=== PATIENT | male | born 1980 | race Caucasian/White ===

== ENCOUNTER 2023-04-28 13:23 | Emergency (ER) | payer SELFPAY ==
[2023-04-28 14:08] LABS: #Eosinphils 0.2 thou/uL (0.0-0.7); #Monocytes 0.6 thou/uL (0.11-0.59); #Neutrophils 2.3 thou/uL (1.40-6.50); %Basophils 0.6 % (0.0-1.0); %Eosinophils 3.9 % (0.0-10.0); %Lymphocytes 33.3 % (21.0-51.0); %Monocytes 12.1 % (0.0-10.0); %Neutrophils 49.9 % (42.0-75.0); Hematocrit 27.2 % (42.0-52.0); Hemoglobin 9.5 g/dL (14.0-18.0); Mean Corpuscular HGB CONC 34.9 g/dL (32.0-36.0); Mean Corpuscular Hemoglobin 34.8 pg (27.0-31.0); Mean Corpuscular Volume 99.6 fl (78.0-98.0); Mean Platelet Volume 9.7 fL (7.4-10.4); Platelet Count 83 10x3/uL (130-400); RBC Distribution Width 14.5 % (11.5-14.5); Red Blood Cell (RBC) Count 2.73 mill/uL (4.70-6.10); White Blood Cell (WBC) Count 4.6 10x3/uL (4.8-10.8)
[2023-04-28 14:27] LABS: ALT (SGPT) 38 U/L (8-55); AST (SGOT) 72 U/L (5-34); Acetaminophen Less than 10 mcg/mL (10.0-30.0); Albumin 3.4 g/dL (3.5-5.0); Alkaline Phosphatase 112 U/L (40-110); Anion Gap 13 mmol/L (10-20); BUN (Urea Nitrogen) 7 mg/dL (8.9-20.6); Bilirubin, Total 2.2 mg/dL (0.2-1.2); CK (CPK) 111 U/L (30-200); Calc. Creatinine Clearance 0 mL/min (70-130); Calcium 8.8 mg/dL (7.8-10.44); Carbon Dioxide 25 mmol/L (22-29); Chloride 110 mmol/L (98-107); Estimated GFR 113; Globulin 3.6 g/dL (2.4-3.5); Glucose 110 mg/dL (70-105); Potassium 3.6 mmol/L (3.5-5.1); Salicylate Less than 8.0 mg/dL (15.0-30.0); Sodium 144 mmol/L (136-145)
[2023-04-28] MEDS ORDERED: Ketorolac Tromethamine 30 MG/ML VIAL ONE (15:09)
[2023-04-28] MEDS ORDERED: diphenhydrAMINE 50 MG/ML VIAL ONE (18:34)
[2023-04-28] MEDS ORDERED: Metoclopramide HCl 10 MG/2 ML VIAL ONE (18:34)
[2023-04-28 21:27] LABS: Bacteria/HPF None Seen HPF (None Seen); Bilirubin 1+ (Negative); Blood, Urine Negative (Negative); CAUTI Indications for Culture Alt mental st,lethar; Clarity Clear (Clear); Glucose, Urine (Dipstick) Normal (Negative); Ketone, Urine Negative (Negative); Leukocyte Negative Leu/uL (Negative); Nitrite Negative (Negative); Protein, Urine (Dipstick) 30 mg/dL (Neg-Trace); RBC/HPF 0-3 HPF (0-3); Specific Gravity, Urine 1.032 (1.002-1.036); Squamous Epithelial 0-3 HPF (0-3); WBC/HPF 0-3 HPF (0-3); pH, Urine 6.5 (5.0-9.0)
[2023-04-28 21:32] LABS: Amphetamine Not Detected (NotDetected); Barbiturates Screen Not Detected (NotDetected); Benzodiazepine Screen Detected (NotDetected); Cocaine Metabolite Screen Not Detected (NotDetected); Methadone Not Detected (NotDetected); Methamphetamine Not Detected (NotDetected); Opiate Screen Not Detected (NotDetected); Oxycodone Screen Not Detected (NotDetected); Phencyclidine (PCP) Not Detected (NotDetected); THC/Cannabinoid Screen Detected (NotDetected); Tricyclic Screen Not Detected (NotDetected)
[2023-04-28 21:33] LABS: Urine Culture Reflex No No
== END 2023-04-29 04:28 | disposition home or self-care (01) ==
LOC: ERS 13:23
DX: R41.82 Altered mental status, unspecified (principal); F10.129 Alcohol abuse with intoxication, unspecified; G43.909 Migraine, unspecified, not intractable, without status migrainosus; E11.9 Type 2 diabetes mellitus without complications; Y90.8 Blood alcohol level of 240 mg/100 ml or more; Z87.891 Personal history of nicotine dependence
CPT/HCPCS: 36415; 70450; 80053; 80306; 80307; 81001; 82550; 84484; 85025; 93005; 96361; 96365; 96375; J1200; J1885; J2765

== ENCOUNTER 2023-04-29 12:34 | Emergency (ER) | payer SELFPAY ==
[2023-04-29 13:50] LABS: Bacteria/HPF None Seen HPF (None Seen); Bilirubin Negative (Negative); Blood, Urine Negative (Negative); CAUTI Indications for Culture Dysuria,urgency,freq; Clarity Clear (Clear); Glucose, Urine (Dipstick) Normal (Negative); Ketone, Urine Negative (Negative); Leukocyte Negative Leu/uL (Negative); Nitrite Negative (Negative); Protein, Urine (Dipstick) Negative (Neg-Trace); RBC/HPF 0-3 HPF (0-3); Specific Gravity, Urine 1.004 (1.002-1.036); Squamous Epithelial 0-3 HPF (0-3); Urobilinogen Normal mg/dL (Less than 2); WBC/HPF None Seen HPF (0-3); pH, Urine 6.5 (5.0-9.0)
[2023-04-29 13:51] LABS: #Eosinphils 0.1 thou/uL (0.0-0.7); #Monocytes 0.5 thou/uL (0.11-0.59); #Neutrophils 2.5 thou/uL (1.40-6.50); %Basophils 0.3 % (0.0-1.0); %Eosinophils 1.5 % (0.0-10.0); %Lymphocytes 21.4 % (21.0-51.0); %Monocytes 12.1 % (0.0-10.0); %Neutrophils 64.4 % (42.0-75.0); Hematocrit 28.6 % (42.0-52.0); Hemoglobin 9.9 g/dL (14.0-18.0); Mean Corpuscular HGB CONC 34.6 g/dL (32.0-36.0); Mean Corpuscular Hemoglobin 35.1 pg (27.0-31.0); Mean Corpuscular Volume 101.4 fl (78.0-98.0); Mean Platelet Volume 9.7 fL (7.4-10.4); RBC Distribution Width 14.3 % (11.5-14.5); Red Blood Cell (RBC) Count 2.82 mill/uL (4.70-6.10); White Blood Cell (WBC) Count 3.9 10x3/uL (4.8-10.8)
[2023-04-29 13:52] LABS: Urine Culture Reflex No No
[2023-04-29 13:57] LABS: Platelet Count 63 10x3/uL (130-400)
[2023-04-29 14:15] LABS: ALT (SGPT) 38 U/L (8-55); AST (SGOT) 65 U/L (5-34); Albumin 3.6 g/dL (3.5-5.0); Alkaline Phosphatase 127 U/L (40-110); Anion Gap 13 mmol/L (10-20); BUN (Urea Nitrogen) 8 mg/dL (8.9-20.6); Bilirubin, Total 3.5 mg/dL (0.2-1.2); CK (CPK) 189 U/L (30-200); Calc. Creatinine Clearance 0 mL/min (70-130); Calcium 8.6 mg/dL (7.8-10.44); Carbon Dioxide 20 mmol/L (22-29); Chloride 110 mmol/L (98-107); Estimated GFR 116; Globulin 3.3 g/dL (2.4-3.5); Glucose 104 mg/dL (70-105); Potassium 3.3 mmol/L (3.5-5.1); Protein, Total 6.9 g/dL (6.0-8.3); Sodium 140 mmol/L (136-145)
== END 2023-04-29 14:56 | disposition home or self-care (01) ==
LOC: ERS 12:34
DX: R53.83 Other fatigue (principal); R53.1 Weakness; E11.9 Type 2 diabetes mellitus without complications; Z87.891 Personal history of nicotine dependence
CPT/HCPCS: 36416; 80053; 81001; 82550; 84484; 85025; 93005; 96360

== ENCOUNTER 2023-05-05 21:07 | Inpatient (IN) | payer SELFPAY ==
[~2023-05-05 21:07] MED LIST: Iopamidol-370 76% 500 ML MDV (1 ML CHARGE) ONE
[2023-05-05 22:53] LABS: #Eosinphils 0.2 thou/uL (0.0-0.7); #Monocytes 0.3 thou/uL (0.11-0.59); %Basophils 0.8 % (0.0-1.0); %Lymphocytes 33.3 % (21.0-51.0); %Neutrophils 51.6 % (42.0-75.0); Hematocrit 25.8 % (42.0-52.0); Mean Corpuscular HGB CONC 34.9 g/dL (32.0-36.0); Mean Corpuscular Hemoglobin 35.2 pg (27.0-31.0); Mean Corpuscular Volume 100.8 fl (78.0-98.0); Mean Platelet Volume 8.7 fL (7.4-10.4); RBC Distribution Width 15.5 % (11.5-14.5); Red Blood Cell (RBC) Count 2.56 mill/uL (4.70-6.10); White Blood Cell (WBC) Count 3.8 10x3/uL (4.8-10.8)
[2023-05-05 22:57] LABS: Delete Auto Diff?? NO; Platelet Count 58 10x3/uL (130-400)
[2023-05-05 23:19] LABS: ALT (SGPT) 23 U/L (8-55); AST (SGOT) 50 U/L (5-34); Albumin 3.4 g/dL (3.5-5.0); Alkaline Phosphatase 139 U/L (40-110); Anion Gap 12 mmol/L (10-20); BUN (Urea Nitrogen) 7 mg/dL (8.9-20.6); Bilirubin, Total 2.1 mg/dL (0.2-1.2); CK (CPK) 127 U/L (30-200); Calc. Creatinine Clearance 0 mL/min (70-130); Calcium 8.5 mg/dL (7.8-10.44); Carbon Dioxide 23 mmol/L (22-29); Chloride 114 mmol/L (98-107); Estimated GFR 115; Globulin 3.2 g/dL (2.4-3.5); Glucose 94 mg/dL (70-105); Protein, Total 6.6 g/dL (6.0-8.3); Sodium 146 mmol/L (136-145)
[2023-05-05 23:22] LABS: Troponin I Less than 0.010 ng/mL (< 0.028)
[2023-05-05 23:25] LABS: Acetaminophen Less than 10 mcg/mL (10.0-30.0); Alcohol 381.5 mg/dL (Less than 10); Lipase 130 U/L (8-78); Magnesium 1.6 mg/dL (1.6-2.6); Salicylate Less than 8.0 mg/dL (15.0-30.0)
[2023-05-06] MEDS ORDERED: Potassium Chloride 20 MEQ TAB ONE (00:06)
[2023-05-06] MEDS ORDERED: Electrolyte Replacement Protocol 1 EACH FS PRN (00:30)
[2023-05-06] MEDS ORDERED: Acetaminophen 650 MG Suppository PR PRN (01:27)
[2023-05-06] MEDS ORDERED: Acetaminophen 325 MG TAB PO PRN (01:27)
[2023-05-06] MEDS ORDERED: Ondansetron ODT 4 MG TAB PO PRN ×2 (01:27→01:41)
[2023-05-06] MEDS ORDERED: Dextrose 50% Abboject 50 ML SYRINGE SLOW IVP PRN (01:33)
[2023-05-06] MEDS ORDERED: Dextrose 5% in Water 1,000 ML IV PRN (01:33)
[2023-05-06] MEDS ORDERED: HumaLOG 300 UNITS/3 ML VIAL SC PRN ×2 (01:33)
[2023-05-06] MEDS ORDERED: Glucagon 1 MG/ML KIT IM PRN (01:33)
[2023-05-06] MEDS ORDERED: Lorazepam 1 MG TAB PO PRN (01:41)
[2023-05-06] MEDS ORDERED: Lorazepam 2 MG/ML VIAL IM PRN (01:41)
[2023-05-06] MEDS ORDERED: Magnesium 2 GM/50 ML(in water) 2 GM in Premix Bag 1 BAG IVPB SCH (01:45)
[2023-05-06] MEDS: Thiamine HCl 200 MG/2 ML VIAL SLOW IVP SCH (02:09)
[2023-05-06] MEDS: Lorazepam 1 MG TAB PO SCH ×3 (02:09→14:52)
[2023-05-06 02:18] LABS: #Eosinphils 0.1 thou/uL (0.0-0.7); #Monocytes 0.3 thou/uL (0.11-0.59); #Neutrophils 1.9 thou/uL (1.40-6.50); %Basophils 0.3 % (0.0-1.0); %Lymphocytes 33.3 % (21.0-51.0); %Monocytes 9.6 % (0.0-10.0); %Neutrophils 52.2 % (42.0-75.0); Hematocrit 29.6 % (42.0-52.0); Hemoglobin 10.2 g/dL (14.0-18.0); Mean Corpuscular HGB CONC 34.5 g/dL (32.0-36.0); Mean Corpuscular Hemoglobin 35.2 pg (27.0-31.0); Mean Corpuscular Volume 102.1 fl (78.0-98.0); Mean Platelet Volume 9.4 fL (7.4-10.4); RBC Distribution Width 15.5 % (11.5-14.5); White Blood Cell (WBC) Count 3.5 10x3/uL (4.8-10.8)
[2023-05-06] MEDS ORDERED: Pantoprazole 40 MG VIAL IVP SCH (02:30)
[2023-05-06 02:31] LABS: Platelet Count 53 10x3/uL (130-400)
[2023-05-06 02:36] LABS: Amphetamine Not Detected (NotDetected); Barbiturates Screen Not Detected (NotDetected); Benzodiazepine Screen Not Detected (NotDetected); Cocaine Metabolite Screen Not Detected (NotDetected); Methadone Not Detected (NotDetected); Methamphetamine Not Detected (NotDetected); Opiate Screen Not Detected (NotDetected); Oxycodone Screen Not Detected (NotDetected); Phencyclidine (PCP) Not Detected (NotDetected); THC/Cannabinoid Screen Detected (NotDetected); Tricyclic Screen Not Detected (NotDetected)
[2023-05-06 02:39] LABS: Phosphorus 3.5 mg/dL (2.3-4.7)
[2023-05-06 02:40] LABS: INR-International Normal Ratio 1.4; Prothrombin Time 17.4 sec (12.0-14.7)
[2023-05-06] MEDS: traMADol HCl 50 MG TAB PO PRN ×3 (02:46→23:08)
[2023-05-06] MEDS: Sodium Chloride 0.9% 1,000 ML IV SCH ×3 (02:49→23:08)
[2023-05-06 04:00] LABS: #Eosinphils 0.1 thou/uL (0.0-0.7); #Monocytes 0.3 thou/uL (0.11-0.59); #Neutrophils 1.5 thou/uL (1.40-6.50); %Basophils 0.3 % (0.0-1.0); %Eosinophils 4.1 % (0.0-10.0); %Lymphocytes 34.4 % (21.0-51.0); %Monocytes 10.2 % (0.0-10.0); %Neutrophils 50.7 % (42.0-75.0); Hematocrit 26.2 % (42.0-52.0); Mean Corpuscular HGB CONC 34.4 g/dL (32.0-36.0); Mean Corpuscular Hemoglobin 35.6 pg (27.0-31.0); Mean Corpuscular Volume 103.6 fl (78.0-98.0); Mean Platelet Volume 8.8 fL (7.4-10.4); RBC Distribution Width 15.7 % (11.5-14.5); Red Blood Cell (RBC) Count 2.53 mill/uL (4.70-6.10); White Blood Cell (WBC) Count 2.9 10x3/uL (4.8-10.8)
[2023-05-06 04:07] LABS: Platelet Count 47 10x3/uL (130-400)
[2023-05-06 04:20] LABS: Hemoglobin A1c 4.3 % (4.0-6.0)
[2023-05-06 04:23] LABS: Iron 51 ug/dL (65-175); Iron Binding Capacity, Total 295 mcg/dL (261-462)
[2023-05-06 04:26] LABS: Anion Gap 12 mmol/L (10-20); BUN (Urea Nitrogen) 6 mg/dL (8.9-20.6); Calc. Creatinine Clearance 152 mL/min (70-130); Calcium 7.8 mg/dL (7.8-10.44); Carbon Dioxide 22 mmol/L (22-29); Chloride 110 mmol/L (98-107); Estimated GFR 121; Glucose 102 mg/dL (70-105); Iron 52 ug/dL (65-175); Iron Binding Capacity, Total 291 mcg/dL (261-462); Magnesium 2.1 mg/dL (1.6-2.6); Sodium 141 mmol/L (136-145)
[2023-05-06] MEDS ORDERED: Potassium Chloride 20 MEQ TAB PO SCH (05:15)
[2023-05-06] MEDS: Potassium Chloride 20 MEQ in Premix Bag 1 BAG IVPB SCH ×2 (05:28→08:19)
[2023-05-06 07:49] VITALS: BMI 24.9
[2023-05-06] MEDS: Multivit, Therapeutic 1 TAB PO SCH (08:17)
[2023-05-06] MEDS: Folic Acid 1 MG TAB PO SCH (08:17)
[2023-05-06] MEDS: Ondansetron PF 4 MG/2 ML Vial IVP PRN (20:30)
[2023-05-07] MEDS: Lorazepam 1 MG TAB PO PRN ×2 (01:46→22:25)
[2023-05-07] MEDS: Thiamine HCl 200 MG/2 ML VIAL SLOW IVP SCH (01:46)
[2023-05-07 06:35] LABS: #Eosinphils 0.1 thou/uL (0.0-0.7); #Monocytes 0.4 thou/uL (0.11-0.59); #Neutrophils 1.3 thou/uL (1.40-6.50); %Basophils 0.9 % (0.0-1.0); %Lymphocytes 23.5 % (21.0-51.0); %Monocytes 15.7 % (0.0-10.0); %Neutrophils 56.9 % (42.0-75.0); Hemoglobin 9.8 g/dL (14.0-18.0); Mean Corpuscular Hemoglobin 35.9 pg (27.0-31.0); Mean Corpuscular Volume 102.6 fl (78.0-98.0); Mean Platelet Volume 10.4 fL (7.4-10.4); RBC Distribution Width 14.9 % (11.5-14.5); Red Blood Cell (RBC) Count 2.73 mill/uL (4.70-6.10); White Blood Cell (WBC) Count 2.3 10x3/uL (4.8-10.8)
[2023-05-07 06:38] LABS: Platelet Count 37 10x3/uL (130-400)
[2023-05-07 06:54] LABS: ALT (SGPT) 18 U/L (8-55); AST (SGOT) 42 U/L (5-34); Albumin 2.9 g/dL (3.5-5.0); Alkaline Phosphatase 147 U/L (40-110); Anion Gap 9 mmol/L (10-20); BUN (Urea Nitrogen) 5 mg/dL (8.9-20.6); Bilirubin, Total 2.5 mg/dL (0.2-1.2); Calc. Creatinine Clearance 147 mL/min (70-130); Calcium 8.1 mg/dL (7.8-10.44); Carbon Dioxide 21 mmol/L (22-29); Chloride 107 mmol/L (98-107); Estimated GFR 118; Globulin 3.2 g/dL (2.4-3.5); Glucose 100 mg/dL (70-105); Potassium 3.5 mmol/L (3.5-5.1); Protein, Total 6.1 g/dL (6.0-8.3); Sodium 133 mmol/L (136-145)
[2023-05-07] MEDS ORDERED: Potassium Chloride 20 MEQ TAB PO SCH (08:00)
[2023-05-07] MEDS: Folic Acid 1 MG TAB PO SCH (08:18)
[2023-05-07] MEDS: Pantoprazole 40 MG VIAL IVP SCH (08:18)
[2023-05-07] MEDS: Sodium Chloride 0.9% 1,000 ML IV SCH ×2 (08:18→22:20)
[2023-05-07] MEDS: Multivit, Therapeutic 1 TAB PO SCH (08:18)
[2023-05-07] MEDS: Ondansetron PF 4 MG/2 ML Vial IVP PRN (14:57)
[2023-05-07] MEDS: traMADol HCl 50 MG TAB PO PRN (22:25)
[2023-05-08] MEDS ORDERED: Lorazepam 1 MG TAB PO PRN (01:41)
[2023-05-08] MEDS: Thiamine HCl 200 MG/2 ML VIAL SLOW IVP SCH (01:43)
[2023-05-08] MEDS ORDERED: Lorazepam 0.5 MG TAB PO SCH (01:45)
[2023-05-08] MEDS: Sodium Chloride 0.9% 1,000 ML IV SCH (06:38)
[2023-05-08 08:12] LABS: #Eosinphils 0.1 thou/uL (0.0-0.7); #Monocytes 0.3 thou/uL (0.11-0.59); #Neutrophils 1.4 thou/uL (1.40-6.50); %Basophils 0.4 % (0.0-1.0); %Eosinophils 3.9 % (0.0-10.0); %Lymphocytes 20.6 % (21.0-51.0); %Monocytes 14.9 % (0.0-10.0); %Neutrophils 59.8 % (42.0-75.0); Hematocrit 26.4 % (42.0-52.0); Hemoglobin 9.1 g/dL (14.0-18.0); Mean Corpuscular HGB CONC 34.5 g/dL (32.0-36.0); Mean Corpuscular Hemoglobin 34.9 pg (27.0-31.0); Mean Corpuscular Volume 101.1 fl (78.0-98.0); Mean Platelet Volume 10.2 fL (7.4-10.4); RBC Distribution Width 14.9 % (11.5-14.5); Red Blood Cell (RBC) Count 2.61 mill/uL (4.70-6.10); White Blood Cell (WBC) Count 2.3 10x3/uL (4.8-10.8)
[2023-05-08 08:26] LABS: Platelet Count 41 10x3/uL (130-400)
[2023-05-08 08:36] LABS: ALT (SGPT) 19 U/L (8-55); AST (SGOT) 40 U/L (5-34); Albumin 3.2 g/dL (3.5-5.0); Alkaline Phosphatase 150 U/L (40-110); Anion Gap 10 mmol/L (10-20); BUN (Urea Nitrogen) 5 mg/dL (8.9-20.6); Bilirubin, Total 3.3 mg/dL (0.2-1.2); Calc. Creatinine Clearance 145 mL/min (70-130); Calcium 8.9 mg/dL (7.8-10.44); Carbon Dioxide 23 mmol/L (22-29); Cardiac Risk 2.9 (Less than 4.5); Chloride 105 mmol/L (98-107); Cholesterol 143 mg/dl (< 200 Desired); Estimated GFR 118; Globulin 3.5 g/dL (2.4-3.5); Glucose 88 mg/dL (70-105); HDL Cholesterol 50 mg/dL (>60 Neg Risk); LDL Cholesterol, Calculated 81 mg/dL; Magnesium 1.5 mg/dL (1.6-2.6); Potassium 4.4 mmol/L (3.5-5.1); Protein, Total 6.7 g/dL (6.0-8.3); Sodium 134 mmol/L (136-145); Triglycerides 61 mg/dL (Less than 150)
[2023-05-08 08:44] LABS: Hemoglobin A1c 4.2 % (4.0-6.0)
[2023-05-08] MEDS: Folic Acid 1 MG TAB PO SCH (09:01)
[2023-05-08] MEDS: Multivit, Therapeutic 1 TAB PO SCH (09:01)
[2023-05-08] MEDS: Pantoprazole 40 MG VIAL IVP SCH (09:02)
[2023-05-08] MEDS ORDERED: Lorazepam 2 MG/ML VIAL SLOW IVP PRN (09:13)
[2023-05-08] MEDS ORDERED: Magnesium Sulfate In Water 4 GM in Premix Bag 1 BAG IVPB SCH (09:30)
[2023-05-08 11:57] VITALS: BP 146/85; TEMP 98.1
[2023-05-09] MEDS ORDERED: Lorazepam 0.5 MG TAB PO PRN (01:41)
[2023-05-09] MEDS ORDERED: Thiamine 100 MG TAB PO SCH (01:45)
== END 2023-05-08 14:53 | disposition left against medical advice (07) | DRG 894 ==
LOC: ERS 21:07 → ERHOLD 05-06 00:22 → IMCU/EMU 05-06 01:26 → OBSVTOIN 05-06 14:31 → T4-A 05-07 16:52
PROVIDERS: ADMIT Student in an Organized Health Care Education/Training Program; ATTEND Family Medicine
DX: F10.129 Alcohol abuse with intoxication, unspecified (principal); D61.818 Other pancytopenia; E87.0 Hyperosmolality and hypernatremia; K70.10 Alcoholic hepatitis without ascites; K70.30 Alcoholic cirrhosis of liver without ascites; E11.9 Type 2 diabetes mellitus without complications; I10 Essential (primary) hypertension; F12.10 Cannabis abuse, uncomplicated; D53.9 Nutritional anemia, unspecified; D69.6 Thrombocytopenia, unspecified; E87.6 Hypokalemia; K63.9 Disease of intestine, unspecified; D72.819 Decreased white blood cell count, unspecified; E83.42 Hypomagnesemia; K63.89 Other specified diseases of intestine; E86.0 Dehydration; Z88.8 Allergy status to other drugs, medicaments and biological substances; Z86.73 Personal history of transient ischemic attack (TIA), and cerebral infarction without residual deficits; Z98.890 Other specified postprocedural states; Z59.00 Homelessness unspecified
CPT/HCPCS: 36415; 36416; 70450; 71045; 74177; 80048; 80053; 80061; 80306; 80307; 82274; 82550; 82607; 82728; 83036; 83540; 83550; 83605; 83690; 83735; 84100; 84443; 84484; 85025; 85610; 93005; C9113; J2060; J2405; J3411; J3475; J3480; J7050; Q9967

== ENCOUNTER 2023-05-09 21:49 | Emergency (ER) | payer SELFPAY ==
[2023-05-09 22:46] LABS: #Eosinphils 0.2 thou/uL (0.0-0.7); #Monocytes 0.5 thou/uL (0.11-0.59); #Neutrophils 2.2 thou/uL (1.40-6.50); %Basophils 0.5 % (0.0-1.0); %Eosinophils 3.6 % (0.0-10.0); %Monocytes 12.3 % (0.0-10.0); %Neutrophils 50.1 % (42.0-75.0); Hematocrit 29.8 % (42.0-52.0); Hemoglobin 10.1 g/dL (14.0-18.0); Mean Corpuscular HGB CONC 33.9 g/dL (32.0-36.0); Mean Corpuscular Hemoglobin 35.3 pg (27.0-31.0); Mean Corpuscular Volume 104.2 fl (78.0-98.0); Mean Platelet Volume 11.5 fL (7.4-10.4); Red Blood Cell (RBC) Count 2.86 mill/uL (4.70-6.10); White Blood Cell (WBC) Count 4.4 10x3/uL (4.8-10.8)
[2023-05-09 23:17] LABS: Platelet Count 55 10x3/uL (130-400)
[2023-05-09 23:42] LABS: ALT (SGPT) 21 U/L (8-55); AST (SGOT) 56 U/L (5-34); Albumin 3.5 g/dL (3.5-5.0); Alkaline Phosphatase 180 U/L (40-110); Anion Gap 16 mmol/L (10-20); BUN (Urea Nitrogen) 6 mg/dL (8.9-20.6); Bilirubin, Total 1.6 mg/dL (0.2-1.2); Calc. Creatinine Clearance 0 mL/min (70-130); Carbon Dioxide 17 mmol/L (22-29); Chloride 115 mmol/L (98-107); Estimated GFR 110; Globulin 4.1 g/dL (2.4-3.5); Glucose 102 mg/dL (70-105); Lipase 78 U/L (8-78); Potassium 4.4 mmol/L (3.5-5.1); Protein, Total 7.6 g/dL (6.0-8.3); Sodium 144 mmol/L (136-145)
[2023-05-09 23:57] LABS: Troponin I Less than 0.010 ng/mL (< 0.028)
[2023-05-10] LABS: Amphetamine Not Detected (NotDetected); Barbiturates Screen Not Detected (NotDetected); Benzodiazepine Screen Detected (NotDetected); Cocaine Metabolite Screen Not Detected (NotDetected); Methadone Not Detected (NotDetected); Methamphetamine Not Detected (NotDetected); Opiate Screen Not Detected (NotDetected); Oxycodone Screen Not Detected (NotDetected); Phencyclidine (PCP) Not Detected (NotDetected); THC/Cannabinoid Screen Detected (NotDetected); Tricyclic Screen Not Detected (NotDetected)
[2023-05-10 00:04] LABS: Acetaminophen Less than 10 mcg/mL (10.0-30.0); Alcohol 409.7 mg/dL (Less than 10); Salicylate Less than 8.0 mg/dL (15.0-30.0)
== END 2023-05-10 00:36 ==
LOC: ERS 21:49
DX: Z02.89 Encounter for other administrative examinations (principal); F10.129 Alcohol abuse with intoxication, unspecified; I10 Essential (primary) hypertension; E11.9 Type 2 diabetes mellitus without complications; Y90.8 Blood alcohol level of 240 mg/100 ml or more; Z87.891 Personal history of nicotine dependence
CPT/HCPCS: 36415; 36416; 80053; 80306; 80307; 82140; 82550; 83690; 84484; 85025; 93005